=== PATIENT | male | born 1960 | race Caucasian/White ===

== ENCOUNTER 2016-09-25 10:01 | Inpatient (IN) | payer OTHER ==
[2016-09-25] MEDS ORDERED: DILAUDID INJ IVP PRN (11:09)
[2016-09-25] MEDS: NS 1000 ML 1,000 ML IV SCH ×2 (11:51→22:50)
[2016-09-25 12:44] LABS: BASOPHILS % (AUTO) 0.6 % (0.2-1.0); EOSINOPHILS # (AUTO) 0.1 x10^3/uL (0.0-0.2); HEMATOCRIT 41.8 % (42.0-54.0); HEMOGLOBIN 13.7 g/dL (13.5-18.0); LYMPHOCYTES # (AUTO) 1.1 X10^3/uL (1.3-2.9); LYMPHOCYTES % (AUTO) 15.2 % (21.0-51.0); MEAN CORPUSCULAR HEMOGLOBIN 28.9 pg (27.0-34.0); MEAN CORPUSCULAR HGB CONC 32.9 g/dL (33.0-35.0); MEAN CORPUSCULAR VOLUME 87.9 fL (80.0-100.0); MEAN PLATELET VOLUME 9.4 fL (7.4-11.0); MONOCYTES # (AUTO) 0.5 x10^3/uL (0.3-0.8); MONOCYTES % (AUTO) 7.2 % (0.0-13.0); NEUTROPHILS # (AUTO) 5.4 x10^3/uL (2.2-4.8); PLATELET COUNT 192 X10^3/uL (150.0-450.0); RED BLOOD COUNT 4.76 X10^6/uL (4.7-6.0)
[2016-09-25 12:49] LABS: ALANINE AMINOTRANSFERASE 75 Units/L (12-78); ALBUMIN 3.8 g/dL (3.4-5.0); ALKALINE PHOSPHATASE 72 Units/L (46-116); ASPARTATE AMINO TRANSFERASE 27 Units/L (15-37); BLOOD UREA NITROGEN 36 mg/dL (7-18); CALCIUM 9.3 mg/dL (8.5-10.1); CARBON DIOXIDE 29.5 mmol/L (21-32); CHLORIDE 96 mmol/L (98-107); COR NA(FOR HYPERGLY) 141 mmol/L (136-145); CREATININE 1.74 mg/dL (0.70-1.30); GLUCOSE 474 mg/dL (65-99); SODIUM 132 mmol/L (136-145); eGFR BLACK RACES 52 (>60); eGFR NON BLACK RACES 43 (>60)
[2016-09-25] MEDS: HUMULIN R SUBCUT PRN ×3 (13:38→20:25)
[2016-09-25] MEDS: DILAUDID INJ IVP PRN ×6 (13:43→22:48)
[2016-09-25 14:30] LABS: BILIRUBIN,URINE NEGATIVE (NEGATIVE); BLOOD/HEMOGLOBIN,URINE NEGATIVE (NEGATIVE); GLUCOSE, URINE 4+ (NEGATIVE); KETONES,URINE NEGATIVE (NEGATIVE); LEUKOCYTE ESTERASE ,URINE NEGATIVE (NEGATIVE); NITRITES,URINE NEGATIVE (NEGATIVE); PROTEIN,URINE NEGATIVE (NEGATIVE); UROBILINOGEN,URINE NORMAL (NORMAL)
[2016-09-25 14:51] LABS: APPEARANCE,URINE CLEAR (CLEAR); COLOR,URINE YELLOW (YELLOW); RBC,URINE 0-1 /HPF (NEGATIVE); SQUAMOUS EPITHELIAL CELL,UR RARE /HPF (NEGATIVE)
[2016-09-25 14:52] LABS: AMORPHOUS SEDIMENT,UR 1+ /HPF (NEGATIVE); BACTERIA,URINE NEGATIVE /HPF (NEGATIVE)
--- NOTE | 2016-09-25 18:41 | VAS ---
HISTORY: pain Study: Bilateral duplex Doppler studies were obtained of the lower extremities. Comparison: None TECHNIQUE: Multiple reynolds scale and color flow Doppler images of the deep venous system were obtaine d of the right and left lower extremity. FINDINGS: The deep venous system of the right and left lower extremities were evaluated from the level of the common femoral vein through the popliteal vein. Normal color flow and augmentation can be observed. In addition, normal compression is seen throughout the deep venous system. IMPRESSION: 1. Negative for DVT. Reported By:
[2016-09-25] MEDS ORDERED: COUMADIN TAB 3 MG PO SCH (21:40)
[2016-09-25] MEDS ORDERED: COUMADIN TAB 6 MG PO SCH (21:41)
[2016-09-25] MEDS ORDERED: GLUCOPHAGE ONE (22:36)
[2016-09-25] MEDS: GLUCOPHAGE PO SCH (22:41)
[2016-09-25] MEDS: ZESTORETIC 20/25 MG PO SCH (22:41)
[2016-09-25] MEDS: GLUCOTROL PO SCH (22:43)
[2016-09-26] MEDS: DILAUDID INJ IVP PRN ×7 (00:54→22:09)
[2016-09-26] MEDS ORDERED: MILK OF MAGNESIA PO ONE (01:00)
[2016-09-26] MEDS: NS 1000 ML 1,000 ML IV SCH ×2 (01:09→14:10)
[2016-09-26] MEDS ORDERED: GLUCOPHAGE ONE ×2 (05:02→17:00)
[2016-09-26] MEDS ORDERED: ZOFRAN INJ 4 MG VIAL IVP PRN ×2 (06:02→10:25)
[2016-09-26] MEDS: GLUCOPHAGE PO SCH ×2 (06:07→17:04)
[2016-09-26] MEDS: GLUCOTROL PO SCH ×2 (06:07→17:05)
[2016-09-26 06:27] LABS: BASOPHILS # (AUTO) 0.1 X10^3/uL (0.0-0.1); BASOPHILS % (AUTO) 0.6 % (0.2-1.0); EOSINOPHILS # (AUTO) 0.1 x10^3/uL (0.0-0.2); EOSINOPHILS % (AUTO) 1.1 % (0.9-2.9); HEMATOCRIT 40.4 % (42.0-54.0); HEMOGLOBIN 13.9 g/dL (13.5-18.0); LYMPHOCYTES # (AUTO) 1.1 X10^3/uL (1.3-2.9); LYMPHOCYTES % (AUTO) 12.7 % (21.0-51.0); MEAN CORPUSCULAR HEMOGLOBIN 29.6 pg (27.0-34.0); MEAN CORPUSCULAR HGB CONC 34.4 g/dL (33.0-35.0); MEAN CORPUSCULAR VOLUME 86.1 fL (80.0-100.0); MEAN PLATELET VOLUME 9.3 fL (7.4-11.0); MONOCYTES # (AUTO) 0.7 x10^3/uL (0.3-0.8); MONOCYTES % (AUTO) 7.4 % (0.0-13.0); NEUTROPHILS # (AUTO) 7.1 x10^3/uL (2.2-4.8); NEUTROPHILS % (AUTO) 78.2 % (42.0-75.0); PLATELET COUNT 205 X10^3/uL (150.0-450.0); RED BLOOD COUNT 4.69 X10^6/uL (4.7-6.0)
[2016-09-26 06:29] LABS: ALANINE AMINOTRANSFERASE 67 Units/L (12-78); ALBUMIN 3.7 g/dL (3.4-5.0); ALKALINE PHOSPHATASE 70 Units/L (46-116); ASPARTATE AMINO TRANSFERASE 25 Units/L (15-37); BLOOD UREA NITROGEN 29 mg/dL (7-18); CALCIUM 9.2 mg/dL (8.5-10.1); CARBON DIOXIDE 32.4 mmol/L (21-32); CHLORIDE 96 mmol/L (98-107); COR NA(FOR HYPERGLY) 139 mmol/L (136-145); CREATININE 1.51 mg/dL (0.70-1.30); GLUCOSE 306 mg/dL (65-99); SODIUM 134 mmol/L (136-145); TOTAL PROTEIN 7.6 g/dL (6.4-8.2); eGFR BLACK RACES > 60 (>60); eGFR NON BLACK RACES 51 (>60)
[2016-09-26] MEDS: HUMULIN R SUBCUT PRN ×3 (07:12→17:09)
[2016-09-26] MEDS ORDERED: ZANAFLEX ONE (09:23)
[2016-09-26] MEDS ORDERED: ZANAFLEX PO ONE (09:30)
[2016-09-26] MEDS ORDERED: KAYEXALATE PO ONE (10:22)
[2016-09-26] MEDS: MILK OF MAGNESIA PO SCH ×4 (11:08→22:05)
[2016-09-26] MEDS: COLACE CAP 100 MG PO SCH ×2 (11:08→22:04)
[2016-09-26] MEDS ORDERED: MILK OF MAGNESIA PO PRN (13:00)
[2016-09-26] MEDS: ZANAFLEX PO SCH ×2 (14:10→22:04)
--- NOTE | 2016-09-26 14:55 | MRI ---
Indication: Left knee pain. Exam: MRI left knee without contrast . Technique: Routine multiplanar multisequence imaging was performed through the left knee without con trast . Findings: There is motion artifact throughout the exam. There is mild linear signal throughout the m edial meniscus which does not extend to the surface. The anterior cruciate ligament is normal . Ther e is some mild focal irregular abnormal signal along the proximal posterior cruciate ligament at the insertion site into the femoral condyle with no fluid signal or retraction seen. There is heterogen eous abnormal signal throughout the middle 2/3 of the lateral meniscus which extends anteriorly with questionable focal irregularity along the anterior horn. There is a small joint effusion extending into the suprapatellar bursa. The bone marrow signal is normal throughout. There is prominent asymme try of the femoral notch with mild lateral tilting of the patella. There is diffuse moderate thinnin g of the patellar cartilage which is most prominent along the lateral facet with some mild increased signal in the cartilage. No focal defects are seen. The surrounding retinacular fibers are intact. There is a small elongated fluid collection along the popliteal fossa medially measuring 3-4 cm in l ength. The bone marrow signal is normal throughout. Impression: Limited exam due to the large amount of motion artifact. Findings suspicious for a horizontal degenerative tear along the anterior and middle 2/3 of the late ral meniscus which is not well delineated due to motion artifact. Small joint effusion with no acute bony abnormality. Questionable mild partial tear of the posterior cruciate ligament at the insertion site. 3-4 cm popliteal cyst. 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 Reported By:
--- NOTE | 2016-09-26 15:50 | DR.UPDATE ---
H&P Update History and Physical Update: HISTORY AND PHYSICAL UPDATE FOR ADMISSION 09/25/16 MR. DILLON'S H&P WAS COMPLETED IN OUR OFFICE PRIOR TO ADMISSION. HE HAS BEEN SEEN AND EXAMINED WITH NO CHANGES NOTED.
--- NOTE | 2016-09-26 16:00 | PCM.PROG ---
Progress Note - Progress Note for Day of Date: 09/26/16 - Subjective Subjective: PATIENT REPORTS SEVERE CRAMPING TO LEFT LEG. PATIENT REPORTS HE HAS CRAMPING ONLY TO LEFT LEFT AND HAS AMBULATED SEVERAL TIMES ALREADY TODAY FOR CRAMPS. HE STATES CRAMPING IS LOCATED AROUND LEFT KNEE JOINT. PATIENT IS SCHEDULED FOR AN MRI OF LEFT LOWER EXTREMITY TODAY. AT BEDSIDE. HE IS NOTED WITH HYPERGLYCEMIA THIS MORNING OF 437. HGB A1C IS 11.4. PATIENT REPORTS HE HAS HAD NAUSEA AND VOMITING LAST NIGHT AND IS CONSTIPATED. CBC WNL EXCEPT: HCT 40.4. CMP WNL EXCEPT: SODIUM 134, POTASSIUM 6.0, CHL 96, CARBON DIOXIDE 32.4, BUN/CREAT 29/1.51, GFR 51, GLUCOSE 306. INR 3.08. WE WILL OBTAIN LOWER EXTREMITY MRI TODAY, START ZOFRAN IV, MILK OF MAGNESIA, COLACE, MIRALAX, AND ZANAFLEX. WE WILL OBTAIN EKG'S DUE TO ELEVATED POTASSIUM AND MONITOR ON TELEMETRY. WE WILL FOLLOW UP IN AM WITH LABS. - Past Medical Family Social History Past Med/Fam/Surg Hx: No changes since H&P Allergies: Allergies No Known Drug Allergy Allergy (Verified 10/26/14 19:50) - Review of Systems ROS: No change since H&P - Vital Signs and I&O's Vital Signs: Temperature 97.4 F Pulse Rate [Right Brachial] 82 Pulse Rate [Left Brachial] 105 Respiratory Rate 20 Blood Pressure [Left Arm] 174/77 Blood Pressure [Right Arm] 160/74 Blood Pressure 146/79 O2 Sat by Pulse Oximetry 94 Intake and Output: Intake & Output 09/24/16 09/25/16 09/26/16 09/27/16 11:59 11:59 11:59 11:59 Intake Total 2505 640 Balance 2505 640 - Physical Exam Oriented: Normal, Time, Person, Place Eyes: Normal. negative: Blurred Vision, Diplopia, Discharge, Pain, Redness, Photophobia Ear: Normal. negative: Swelling, Ecchymosis, Hemotypanum, Abrasion, Laceration Nose: Normal. negative: Injected, Discharge, Blood Throat: Normal. negative: Tonsillar Hypertrophy, Red, Exudate Respiratory: Normal Cardiovascular: Normal. negative: Murmur, Edema : Normal. negative: Dysuria, Hematuria, Frequency, Discharge, Testicular Pain Auscultation: Bowel Sounds: Normal. negative: Bruit Palpation: Normal. negative: Spleen Enlarged, Liver Enlarged, Mass Pulsatile Tenderness: Normal. negative: Rebound, Guarding, Rigidity Skin: Normal. negative: Diaphoresis, Wound, Bruising Musculoskeletal: Left, Knee, Leg, Instability Psychiatric: Normal Mood Description: Calm, Appropriate Affect: Normal Speech Pattern: Clear, Appropriate - Laboratory and Diagnostics Result Diagrams: 09/26/16 03:05 09/26/16 06:35 Labs: Laboratory WBC 9.0 X10^3/uL (3.6-10.0) 09/26/16 03:05 RBC 4.69 X10^6/uL (4.7-6.0) L 09/26/16 03:05 Hgb 13.9 g/dL (13.5-18.0) 09/26/16 03:05 Hct 40.4 % (42.0-54.0) L 09/26/16 03:05 MCV 86.1 fL (80.0-100.0) 09/26/16 03:05 MCH 29.6 pg (27.0-34.0) 09/26/16 03:05 MCHC 34.4 g/dL (33.0-35.0) 09/26/16 03:05 RDW 13.0 % (11.6-16.5) 09/26/16 03:05 Plt Count 205 X10^3/uL (150.0-450.0) 09/26/16 03:05 MPV 9.3 fL (7.4-11.0) 09/26/16 03:05 Neut % 78.2 % (42.0-75.0) H 09/26/16 03:05 Lymph % 12.7 % (21.0-51.0) L 09/26/16 03:05 Brooks % 7.4 % (0.0-13.0) 09/26/16 03:05 Eos % 1.1 % (0.9-2.9) 09/26/16 03:05 Baso % 0.6 % (0.2-1.0) 09/26/16 03:05 Neut # 7.1 x10^3/uL (2.2-4.8) H 09/26/16 03:05 Lymph # 1.1 X10^3/uL (1.3-2.9) L 09/26/16 03:05 Brooks # 0.7 x10^3/uL (0.3-0.8) 09/26/16 03:05 Eos # 0.1 x10^3/uL (0.0-0.2) 09/26/16 03:05 Baso # 0.1 X10^3/uL (0.0-0.1) 09/26/16 03:05 Absolute Nucleated RBC 0.1 /100WBC 09/26/16 03:05 INR Target Range - 09/26/16 03:05 INR 3.08 (0.8-1.3) H 09/26/16 03:05 Sodium 134 mmol/L (136-145) L 09/26/16 03:05 Corrected Sodium 139 mmol/L (136-145) 09/26/16 03:05 Potassium 6.0 mmol/L (3.5-5.1) H* 09/26/16 03:05 Chloride 96 mmol/L (98-107) L 09/26/16 03:05 Carbon Dioxide 32.4 mmol/L (21-32) H 09/26/16 03:05 BUN 29 mg/dL (7-18) H 09/26/16 03:05 Creatinine 1.51 mg/dL (0.70-1.30) H 09/26/16 03:05 Est GFR (MDRD) Af Amer > 60 (>60) 09/26/16 03:05 Est GFR (MDRD) Non-Af 51 (>60) L 09/26/16 03:05 Glucose 437 mg/dL (65-99) H 09/26/16 06:35 Hemoglobin A1c 11.4 % (4.5-6.2) H 09/26/16 03:05 Calcium 9.2 mg/dL (8.5-10.1) 09/26/16 03:05 Corrected Calcium TNP 09/26/16 03:05 Total Bilirubin 0.30 mg/dL (0.2-1.0) 09/26/16 03:05 AST 25 Units/L (15-37) 09/26/16 03:05 ALT 67 Units/L (12-78) 09/26/16 03:05 Alkaline Phosphatase 70 Units/L (46-116) 09/26/16 03:05 Total Protein 7.6 g/dL (6.4-8.2) 09/26/16 03:05 Albumin 3.7 g/dL (3.4-5.0) 09/26/16 03:05 Globulin 3.9 g/dL (2.5-4.5) 09/26/16 03:05 Albumin/Globulin Ratio 0.9 Ratio (1.1-2.1) L 09/26/16 03:05 Specimen Type Clean catch urine 09/25/16 13:50 Urine Color Yellow (YELLOW) 09/25/16 13:50 Urine Appearance Clear (CLEAR) 09/25/16 13:50 Urine pH 8.0 (5.0 - 8.0) 09/25/16 13:50 Ur Specific [place] 1.015 (1.000-1.030) 09/25/16 13:50 Urine Protein Negative (NEGATIVE) 09/25/16 13:50 Urine Glucose (UA) 4+ (NEGATIVE) 09/25/16 13:50 Urine Ketones Negative (NEGATIVE) 09/25/16 13:50 Urine Occult Blood Negative (NEGATIVE) 09/25/16 13:50 Urine Nitrite Negative (NEGATIVE) 09/25/16 13:50 Urine Bilirubin Negative (NEGATIVE) 09/25/16 13:50 Urine Urobilinogen Normal (NORMAL) 09/25/16 13:50 Ur Leukocyte Esterase Negative (NEGATIVE) 09/25/16 13:50 Urine RBC 0-1 /HPF (NEGATIVE) 09/25/16 13:50 Urine WBC None seen /HPF (NEGATIVE) 09/25/16 13:50 Ur Squamous Epith Cells Rare /HPF (NEGATIVE) 09/25/16 13:50 Amorphous Sediment 1+ /HPF (NEGATIVE) 09/25/16 13:50 Urine Bacteria Negative /HPF (NEGATIVE) 09/25/16 13:50 Ur Culture Indicated? No/not indicated 09/25/16 13:50 - Plan (1) Intractable pain Status: Acute Plan: START ZANAFLEX, CONTINUE DILAUDID IV PRN, OBTAIN MRI OF LEFT LOWER EXTREMITY TODAY, MONITOR. (2) Lower extremity pain, left Status: Acute Plan: ABOVE. (3) Diabetes mellitus, type II Status: Chronic Qualifiers: Diabetes mellitus complication status: with hyperglycemia Diabetes mellitus complication detail: D Diabetic retinopathy severity: D Proliferative retinopathy type: P Diabetes mellitus macular edema: D Diabetes mellitus termite technician insulin use: without termite technician use Laterality: L Chronic kidney disease stage: C Qualified Code(s): E11.65 - Type 2 diabetes mellitus with hyperglycemia (4) GERD (gastroesophageal reflux disease) Status: Chronic Qualifiers: Esophagitis presence: esophagitis presence not specified Qualified Code(s) : K21.9 - Gastro-esophageal reflux disease without esophagitis (5) HTN (hypertension) Status: Chronic Qualifiers: Hypertension type: essential hypertension Qualified Code(s): I10 - Essential (primary) hypertension (6) Hx of deep venous thrombosis Status: Chronic (7) Hx pulmonary embolism Status: Chronic (8) Obstructive sleep apnea treated with BiPAP Status: Chronic
[2016-09-26] MEDS ORDERED: SNACK - Diabetic Appropriate PO SCH (20:00)
[2016-09-26 20:44] VITALS: BMI 41.4
[2016-09-26] MEDS ORDERED: COUMADIN TAB 6 MG PO SCH (21:00)
[2016-09-26] MEDS ORDERED: COUMADIN TAB 3 MG PO SCH (21:00)
[2016-09-26] MEDS ORDERED: MIRALAX POWDER (1 DOSE 17GM) PO SCH (21:00)
[2016-09-26] MEDS: ZESTORETIC 20/25 MG PO SCH (22:03)
[2016-09-27] MEDS: NS 1000 ML 1,000 ML IV SCH (04:02)
[2016-09-27] MEDS: DILAUDID INJ IVP PRN ×2 (04:09→08:29)
[2016-09-27 06:01] LABS: BASOPHILS % (AUTO) 0.7 % (0.2-1.0); EOSINOPHILS # (AUTO) 0.2 x10^3/uL (0.0-0.2); HEMOGLOBIN 13.1 g/dL (13.5-18.0); LYMPHOCYTES # (AUTO) 1.7 X10^3/uL (1.3-2.9); LYMPHOCYTES % (AUTO) 27.5 % (21.0-51.0); MEAN CORPUSCULAR HGB CONC 33.7 g/dL (33.0-35.0); MEAN CORPUSCULAR VOLUME 86.2 fL (80.0-100.0); MEAN PLATELET VOLUME 9.1 fL (7.4-11.0); MONOCYTES # (AUTO) 0.5 x10^3/uL (0.3-0.8); MONOCYTES % (AUTO) 8.7 % (0.0-13.0); NEUTROPHILS # (AUTO) 3.7 x10^3/uL (2.2-4.8); NEUTROPHILS % (AUTO) 60.1 % (42.0-75.0); PLATELET COUNT 189 X10^3/uL (150.0-450.0); RED BLOOD COUNT 4.53 X10^6/uL (4.7-6.0); RED CELL DISTRIBUTION WIDTH 13.1 % (11.6-16.5); WHITE BLOOD COUNT 6.2 X10^3/uL (3.6-10.0)
[2016-09-27 06:06] LABS: ALANINE AMINOTRANSFERASE 54 Units/L (12-78); ALBUMIN 3.2 g/dL (3.4-5.0); ALKALINE PHOSPHATASE 69 Units/L (46-116); ASPARTATE AMINO TRANSFERASE 25 Units/L (15-37); BLOOD UREA NITROGEN 23 mg/dL (7-18); CALCIUM 8.4 mg/dL (8.5-10.1); CHLORIDE 99 mmol/L (98-107); COR NA(FOR HYPERGLY) 138 mmol/L (136-145); CREATININE 1.32 mg/dL (0.70-1.30); GLUCOSE 278 mg/dL (65-99); SODIUM 134 mmol/L (136-145); eGFR BLACK RACES > 60 (>60); eGFR NON BLACK RACES 59 (>60)
[2016-09-27] MEDS ORDERED: GLUCOPHAGE ONE (06:13)
[2016-09-27] MEDS: GLUCOPHAGE PO SCH (06:17)
[2016-09-27] MEDS: ZANAFLEX PO SCH (06:17)
[2016-09-27] MEDS: GLUCOTROL PO SCH (06:17)
[2016-09-27] MEDS: COLACE CAP 100 MG PO SCH (08:28)
[2016-09-27] MEDS: MILK OF MAGNESIA PO SCH (08:28)
[2016-09-27] MEDS ORDERED: PERCOCET TAB 5/325 MG PO PRN (11:18)
[2016-09-27 13:15] VITALS: BP 115/70
== END 2016-09-27 12:45 | disposition home or self-care (01) | DRG 556 ==
LOC: MED/SURG 10:01 → OBSVTOIN 09-26 08:30
PROVIDERS: ADMIT Internal Medicine; ATTEND Internal Medicine
DX: M79.605 Pain in left leg (principal); I27.82 Chronic pulmonary embolism; E11.65 Type 2 diabetes mellitus with hyperglycemia; Z79.01 Long term (current) use of anticoagulants; R60.0 Localized edema; R11.2 Nausea with vomiting, unspecified; K59.09 Other constipation; E87.5 Hyperkalemia; G47.33 Obstructive sleep apnea (adult) (pediatric); Z86.718 Personal history of other venous thrombosis and embolism; R52 Pain, unspecified
CPT/HCPCS: 36415; 73721; 80053; 81001; 82947; 83036; 85025; 85610; 87040; 93005; 93970; 94760; A4222; G0378; J1170; J1815